=== PATIENT | female | born 1950 | race Hispanic/Latino ===

== ENCOUNTER 2017-08-12 09:17 | Day surgery (SDC) | payer BC, MEDICARE ==
[~2017-08-12] VITALS: Ht 149.9 cm; Wt 71.7 kg
[~2017-08-12 09:17] MED LIST: ALBUHFA IH; CARV6.25 PO; DIPH25 PO; ENAL5TAB PO; GABA-529 PO; METF500T6 PO; MONT10TA24 PO; OMEP20CA10 PO; SIMV20TA6 PO; SODIUM CHLORIDE 0.9% 1000ML 1,000 ML IV ONE
[2017-08-12 09:23] VITALS: BP 198/88
[2017-08-12] MEDS ORDERED: RANI-257 PO (10:00)
[2017-08-12] MEDS ORDERED: PROPOFOL 10 MG/ML 20ML VIAL IV ONE ×3 (10:07→10:34)
[2017-08-12 10:40] VITALS: BP 118/70
[2017-08-12] MEDS ORDERED: IPRATROPIUM/ALBUTEROL SULFATE 3 ML SOLUTION IH ONE (10:49)
[2017-09-17] MEDS ORDERED: OMEP20CA10 PO (17:03)
== END 2017-08-12 11:20 | disposition home or self-care (01) ==
LOC: DAH 09:17
PROVIDERS: ATTEND Internal Medicine Gastroenterology
DX: Z09 Encounter for follow-up examination after completed treatment for conditions other than malignant neoplasm (principal); Z86.010 Personal history of colon polyps; Z68.31 Body mass index [BMI] 31.0-31.9, adult; K21.9 Gastro-esophageal reflux disease without esophagitis; E11.9 Type 2 diabetes mellitus without complications; I10 Essential (primary) hypertension; E78.5 Hyperlipidemia, unspecified; J45.909 Unspecified asthma, uncomplicated; Z90.49 Acquired absence of other specified parts of digestive tract; Z90.710 Acquired absence of both cervix and uterus; Z79.899 Other long term (current) drug therapy; Z79.84 Long term (current) use of oral hypoglycemic drugs; K57.30 Diverticulosis of large intestine without perforation or abscess without bleeding
CPT/HCPCS: 43235; 45378; 82948 ×2; 93005; 94640; A4606; J2704 ×3; J7030

== ENCOUNTER 2017-08-13 23:31 | Inpatient (IN) | payer MEDICARE ==
[~2017-08-13] VITALS: Ht 149.9 cm; Wt 73.5 kg
[~2017-08-13 23:31] MED LIST changes: -OMEP20CA10 PO; +RANI-257 PO; -SODIUM CHLORIDE 0.9% 1000ML 1,000 ML IV ONE
[2017-08-14] VITALS (7 sets, daily range): BP systolic 122–181; BP diastolic 65–88
[2017-08-14] MEDS ORDERED: SODIUM CHLORIDE 0.9% 1000ML 1,000 ML IV ONE ×2 (00:06→04:27)
[2017-08-14] MEDS ORDERED: ONDANSETRON HCL MDV 20ML 2 MG/ML VIAL ONE (00:06)
[2017-08-14] MEDS ORDERED: MORPHINE SULFATE 2 MG/ML 1ML SYG ONE (00:07)
[2017-08-14 00:09] LABS: BILIRUBIN,URINE Negative (NEGATIVE); COLOR,URINE Yellow (YELLOW); GLUCOSE, URINE (UA) Negative (NEGATIVE); KETONES,URINE Negative (NEGATIVE); LEUKOCYTE ESTERASE ,URINE Negative (NEGATIVE); NITRATE,URINE Negative (NEGATIVE); OCCULT BLOOD,URINE Moderate (NEGATIVE); PH,URINE 6.5 (5.0-8.0); PROTEIN,URINE Negative (NEGATIVE); UROBILINOGEN,URINE 0.2 mg/dL (0.2-1.0)
[2017-08-14 00:12] LABS: BASOPHILS % (AUTO) 17.7 % (0.0-5.0); EOSINOPHILS % (AUTO) 1.6 % (0.0-8.0); HEMATOCRIT 44.1 % (36-48); LYMPHOCYTES % (AUTO) 11.5 % (21.0-51.0); MEAN CORPUSCULAR HEMOGLOBIN 28.5 pg (27.0-33.0); MEAN CORPUSCULAR HGB CONC 33.6 g/dL (32.0-36.0); MEAN CORPUSCULAR VOLUME 84.6 fL (79-99); MONOCYTES % (AUTO) 6.8 % (3.0-13.0); NEUTROPHILS % (AUTO) 62.4 % (40.0-77.0); PLATELET COUNT (AUTO) 291 K/uL (130-400); RED BLOOD CELL COUNT(AUTO) 5.21 MIL/uL (4.00-5.50); RED CELL DISTRIBUTION WIDTH 14.7 % (11.0-15.5); WHITE BLOOD COUNT (AUTO) 11.3 K/uL (4.8-10.8)
[2017-08-14 00:17] LABS: APPEARANCE,URINE 9 (CLEAR)
[2017-08-14 00:25] LABS: CREATININE 1.3 mg/dL (0.5-1.5); PARTIAL THROMBOPLASTIN TIME 24.7 SEC (26.3-35.5); POTASSIUM 3.9 mmol/L (3.5-5.1); PROTHROMBIN TIME 10.5 SEC (9.6-11.6)
[2017-08-14 00:29] LABS: BILIRUBIN,TOTAL 0.3 mg/dL (0.2-1.0); TOTAL PROTEIN, SERUM 7.8 g/dL (6.0-8.3)
[2017-08-14] MEDS ORDERED: MORPHINE SULFATE 4 MG/1ML SYG ONE (00:31)
[2017-08-14 00:48] LABS: BACTERIA,URINE Rare /HPF (None Seen); WBC,URINE 0-1 /HPF (0-1)
[2017-08-14 00:49] LABS: MUCUS,URINE Moderate LPF (None Seen); SQUAMOUS EPITHELIAL CELL,UR Moderate /HPF (0-2)
[2017-08-14] MEDS ORDERED: HYDROMORPHONE 1 MG/1 ML AMP ONE (01:07)
[2017-08-14] MEDS ORDERED: KETOROLAC TROMETHAMINE 30MG/ML ONE (01:50)
[2017-08-14] MEDS ORDERED: CEFTRIAXONE SODIUM 1 GM ONE (04:26)
[2017-08-14 06:27] LABS: MEAN CORPUSCULAR HEMOGLOBIN 28.4 pg (27.0-33.0); MEAN CORPUSCULAR HGB CONC 33.3 g/dL (32.0-36.0); MEAN CORPUSCULAR VOLUME 85.2 fL (79-99); PLATELET COUNT (AUTO) 271 K/uL (130-400); RED BLOOD CELL COUNT(AUTO) 4.58 MIL/uL (4.00-5.50); RED CELL DISTRIBUTION WIDTH 14.4 % (11.0-15.5); WHITE BLOOD COUNT (AUTO) 12.6 K/uL (4.8-10.8)
[2017-08-14 06:36] LABS: CREATININE 1.2 mg/dL (0.5-1.5); POTASSIUM 4.8 mmol/L (3.5-5.1)
[2017-08-14] MEDS ORDERED: MORPHINE SULFATE 2 MG/ML 1ML SYG IVP PRN (07:00)
[2017-08-14] MEDS: TAMSULOSIN HCL 0.4 MG CAP.ER.24H PO SCH (15:32)
[2017-08-15] VITALS (20 sets, daily range): BP systolic 120–182; BP diastolic 50–91
[2017-08-15] MEDS ORDERED: SODIUM CHLORIDE 0.9% 1000ML 1,000 ML IV ONE ×3 (03:13→20:15)
[2017-08-15 03:53] LABS: HEMATOCRIT 39.4 % (36-48); MEAN CORPUSCULAR HEMOGLOBIN 29.1 pg (27.0-33.0); MEAN CORPUSCULAR HGB CONC 34.3 g/dL (32.0-36.0); NUCLEATED RED BLOOD CELLS 0.2 % (0.0-0.19); PLATELET COUNT (AUTO) 263 K/uL (130-400); RED BLOOD CELL COUNT(AUTO) 4.63 MIL/uL (4.00-5.50); RED CELL DISTRIBUTION WIDTH 14.6 % (11.0-15.5); WHITE BLOOD COUNT (AUTO) 7.9 K/uL (4.8-10.8)
[2017-08-15 03:55] LABS: CREATININE 0.7 mg/dL (0.5-1.5); POTASSIUM 3.6 mmol/L (3.5-5.1)
[2017-08-15] MEDS: CEFTRIAXONE SODIUM 1 GM IVP SCH (08:50)
[2017-08-15] MEDS: TAMSULOSIN HCL 0.4 MG CAP.ER.24H PO SCH (09:00)
[2017-08-15] MEDS ORDERED: MIDAZOLAM HCL 1 MG/ML 2ML VIAL ONE (13:00)
[2017-08-15] MEDS ORDERED: FENTANYL CITRATE PF 50 MCG/1 ML 2ML VIAL ONE ×2 (13:00→14:04)
[2017-08-15] MEDS ORDERED: ISOVUE-370 50ML VIAL IV ONE (13:00)
[2017-08-15] MEDS ORDERED: PROPOFOL 10 MG/ML 20ML VIAL IV ONE (13:00)
[2017-08-15] MEDS ORDERED: SUB TO ALBUTEROL 2.5MG/3ML NEBULES PER P&T IH ONE ×2 (13:02→13:39)
[2017-08-15] MEDS ORDERED: METOCLOPRAMIDE 10 MG/2 ML VIAL ONE (13:31)
[2017-08-15] MEDS ORDERED: ONDANSETRON HCL MDV 20ML 2 MG/ML VIAL ONE ×2 (13:34→13:39)
[2017-08-15] MEDS ORDERED: PHENYLEPHRINE HCL 10 MG/ML 1ML VIAL IV ONE (13:39)
[2017-08-15] MEDS ORDERED: GLYCOPYRROLATE 0.2 MG/ML 5 ML VIAL ONE (13:53)
[2017-08-15] MEDS ORDERED: NEOSTIGMINE METHYLSULFATE 1MG/ML IV ONE (13:54)
[2017-08-15] MEDS ORDERED: ACETAMINOPHEN-CODEINE 300/30MG TAB PO PRN ×2 (15:45)
[2017-08-15] MEDS ORDERED: LACTATED RINGERS 1000ML 1,000 ML IV SCH (15:45)
[2017-08-15] MEDS ORDERED: ENALAPRIL MALEATE 5 MG TAB PO SCH (17:00)
[2017-08-15] MEDS: ALBUTEROL SULFATE 0.083% 2.5 MG/3 ML INH IH SCH ×2 (19:05→23:23)
[2017-08-15] MEDS ORDERED: MONTELUKAST SODIUM 10 MG TAB PO SCH (21:00)
[2017-08-15] MEDS ORDERED: ATORVASTATIN CALCIUM 10 MG TABLET PO SCH (21:00)
[2017-08-15] MEDS ORDERED: DIPHENHYDRAMINE HCL 25 MG CAPSULE PO SCH (21:00)
[2017-08-15] MEDS: CARVEDILOL 6.25 MG TABLET PO SCH (21:32)
[2017-08-15] MEDS: PHENAZOPYRIDINE HCL 200 MG TABLET PO SCH (21:32)
[2017-08-16] VITALS: BP 124/71
[2017-08-16 04:00] VITALS: BP 108/59
[2017-08-16] MEDS: ALBUTEROL SULFATE 0.083% 2.5 MG/3 ML INH IH SCH (05:57)
[2017-08-16 08:00] VITALS: BP 127/73
[2017-08-16] MEDS ORDERED: METFORMIN HCL 500 MG TAB.SR.24H PO SCH (08:00)
[2017-08-16] MEDS: TAMSULOSIN HCL 0.4 MG CAP.ER.24H PO SCH (08:55)
[2017-08-16] MEDS: PHENAZOPYRIDINE HCL 200 MG TABLET PO SCH (08:55)
[2017-08-16 08:56] VITALS: BP 127/73
[2017-08-16] MEDS: CARVEDILOL 6.25 MG TABLET PO SCH (08:56)
[2017-08-16] MEDS ORDERED: GABAPENTIN 300 MG CAPSULE PO SCH (09:00)
[2017-08-16] MEDS: CEFTRIAXONE SODIUM 1 GM IVP SCH (09:00)
[2017-08-16] MEDS ORDERED: RANITIDINE HCL 15 MG/1 ML PO SCH (09:00)
[2017-08-16] MEDS ORDERED: CIPR-245 PO (09:44)
[2017-08-16] MEDS ORDERED: TYL3 PO (09:44)
[2017-09-17] MEDS ORDERED: OMEP20CA10 PO (17:03)
== END 2017-08-16 11:50 | disposition home or self-care (01) | DRG 670 ==
LOC: EDH 23:31 → OBSVTOIN 08-14 02:25 → 3AH 08-14 02:25
PROVIDERS: ADMIT Internal Medicine; ATTEND Internal Medicine
PROC: 0T768DZ Dilation of Right Ureter with Intraluminal Device, Via Natural or Artificial Opening Endoscopic (ICD-10-PCS; principal; 2017-08-15 13:10)
PROC: 0TC68ZZ Extirpation of Matter from Right Ureter, Via Natural or Artificial Opening Endoscopic (ICD-10-PCS; 2017-08-15 13:10)
DX: N13.6 Pyonephrosis (principal); E11.9 Type 2 diabetes mellitus without complications; E78.5 Hyperlipidemia, unspecified; I10 Essential (primary) hypertension; J45.909 Unspecified asthma, uncomplicated; K21.9 Gastro-esophageal reflux disease without esophagitis; M81.0 Age-related osteoporosis without current pathological fracture; N35.9 Urethral stricture, unspecified; M19.90 Unspecified osteoarthritis, unspecified site; Z90.49 Acquired absence of other specified parts of digestive tract; Z90.710 Acquired absence of both cervix and uterus; Z88.2 Allergy status to sulfonamides; Z28.21 Immunization not carried out because of patient refusal
CPT/HCPCS: 36415; 74176; 74420; 80048; 80053; 81001; 82550; 82553; 82948; 84484; 85025; 85027; 85610; 85730; 93005; 94640; 94664; A4218; A4344; A4606; C1758; C1769; C2617; J0696; J1170; J1885; J2250; J2270; J2370; J2704; J2710; J2765; J3010; J3490; J7030; J7120; Q0163; Q9967

== ENCOUNTER 2017-09-19 06:25 | Day surgery (SDC) | payer MEDICARE ==
[2017-09-17 17:00] VITALS: BP 144/68
[2017-09-17 17:45] LABS: BASOPHILS % (AUTO) 1.1 % (0.0-5.0); EOSINOPHILS % (AUTO) 3.6 % (0.0-8.0); HEMATOCRIT 43.6 % (36-48); LYMPHOCYTES % (AUTO) 34.1 % (21.0-51.0); MEAN CORPUSCULAR HEMOGLOBIN 28.3 pg (27.0-33.0); MEAN CORPUSCULAR HGB CONC 33.5 g/dL (32.0-36.0); MEAN CORPUSCULAR VOLUME 84.6 fL (79-99); NEUTROPHILS % (AUTO) 53.2 % (40.0-77.0); NUCLEATED RED BLOOD CELLS 0.1 % (0.0-0.19); PLATELET COUNT (AUTO) 297 K/uL (130-400); RED BLOOD CELL COUNT(AUTO) 5.15 MIL/uL (4.00-5.50); WHITE BLOOD COUNT (AUTO) 8.8 K/uL (4.8-10.8)
[2017-09-17 17:54] LABS: CREATININE 0.9 mg/dL (0.5-1.5)
[2017-09-19] VITALS (17 sets, daily range): BP systolic 133–171; BP diastolic 62–94
[~2017-09-19] VITALS: Ht 149.9 cm; Wt 71.6 kg
[~2017-09-19 06:25] MED LIST changes: +CEFTRIAXONE SODIUM 1 GM IVP SCH; +OMEP20CA10 PO; -RANI-257 PO
[2017-09-19] MEDS ORDERED: SODIUM CHLORIDE 0.9% 1000ML 1,000 ML IV ONE (07:07)
[2017-09-19] MEDS ORDERED: MIDAZOLAM HCL 1 MG/ML 2ML VIAL ONE (07:29)
[2017-09-19] MEDS ORDERED: NEOSTIGMINE 5MG/5ML SYR IV ONE (07:29)
[2017-09-19] MEDS ORDERED: DEXAMETHASONE SOD PHOSPHATE 10MG/ML 1ML VIAL ONE (07:29)
[2017-09-19] MEDS ORDERED: LIDOCAINE PF 2% 5ML ABBOJECT ONE (07:29)
[2017-09-19] MEDS ORDERED: ONDANSETRON HCL 4 MG/2 ML VIAL ONE (07:29)
[2017-09-19] MEDS ORDERED: GLYCOPYRROLATE 0.2 MG/ML 5 ML VIAL ONE (07:29)
[2017-09-19] MEDS ORDERED: PROPOFOL 10 MG/ML 20ML VIAL IV ONE (07:30)
[2017-09-19] MEDS ORDERED: FENTANYL CITRATE PF 50 MCG/1 ML 2ML VIAL ONE ×2 (07:30→08:55)
[2017-09-19] MEDS ORDERED: ISOVUE-370 50ML VIAL IV ONE (07:38)
[2017-09-19] MEDS ORDERED: OPIUM/BELLADONNA ALKALOIDS 1 EACH SUPP.RECT RC ONE (09:16)
[2017-09-19] MEDS ORDERED: PHENAZOPYRIDINE HCL 200 MG TABLET ONE (10:02)
== END 2017-09-19 10:57 | disposition home or self-care (01) ==
LOC: DAH 06:25
PROVIDERS: ATTEND Urology
DX: N13.2 Hydronephrosis with renal and ureteral calculous obstruction (principal); N13.1 Hydronephrosis with ureteral stricture, not elsewhere classified; I10 Essential (primary) hypertension; E11.9 Type 2 diabetes mellitus without complications; E78.5 Hyperlipidemia, unspecified; K21.9 Gastro-esophageal reflux disease without esophagitis; J45.909 Unspecified asthma, uncomplicated; M81.0 Age-related osteoporosis without current pathological fracture; Z79.899 Other long term (current) drug therapy; Z79.84 Long term (current) use of oral hypoglycemic drugs; Z88.2 Allergy status to sulfonamides; I25.2 Old myocardial infarction; J18.9 Pneumonia, unspecified organism; Z87.891 Personal history of nicotine dependence; Z98.890 Other specified postprocedural states
CPT/HCPCS: 36415; 52356; 76000; 80048; 82948 ×2; 85025; 93005; A4218; A4354; A4358; A4510; A4600; A6204; C1758; C1769; C2617; J0696; J1100; J2001; J2250; J2405; J2704; J2710; J3010 ×2; J3490; J7030 ×2; Q9967

== ENCOUNTER 2021-02-12 12:15 | Day surgery (SDC) | payer MEDICARE ==
[2021-02-09 11:48] LABS: BASOPHILS % (AUTO) 1.1 % (0.0-5.0); EOSINOPHILS % (AUTO) 3.9 % (0.0-8.0); HEMATOCRIT 42.3 % (36-48); MEAN CORPUSCULAR HEMOGLOBIN 26.9 pg (27.0-33.0); MEAN CORPUSCULAR HGB CONC 31.7 g/dL (32.0-36.0); MEAN CORPUSCULAR VOLUME 84.9 fL (79-99); MONOCYTES % (AUTO) 10.3 % (3.0-13.0); NEUTROPHILS % (AUTO) 47.6 % (40.0-77.0); PLATELET COUNT (AUTO) 286 K/uL (130-400); RED BLOOD CELL COUNT(AUTO) 4.98 MIL/uL (4.00-5.50); RED CELL DISTRIBUTION WIDTH 14.3 % (11.0-15.5); WHITE BLOOD COUNT (AUTO) 7.2 K/uL (4.8-10.8)
[2021-02-09 12:11] LABS: CREATININE 0.9 mg/dL (0.5-1.5); POTASSIUM 4.5 mmol/L (3.5-5.1)
[~2021-02-12] VITALS: Ht 152.4 cm; Wt 71.9 kg
[2021-02-12] VITALS (17 sets, daily range): BP systolic 143–182; BP diastolic 70–103
[~2021-02-12 12:15] MED LIST changes: -ALBUHFA IH; +CEFTRIAXONE 1G VIAL IVP ONE; -CEFTRIAXONE SODIUM 1 GM IVP SCH; -DIPH25 PO; -ENAL5TAB PO; +FLUT1BLS9 IH; -GABA-529 PO; +LOSA100T58 PO; +METF-444 PO; -METF500T6 PO; -MONT10TA24 PO; +MONT10TA32 PO; -OMEP20CA10 PO; +OMEP20CA12 PO; +SIMV-43 PO; -SIMV20TA6 PO; +TRAZ-185 PO
[2021-02-12] MEDS ORDERED: 0.9%NACL 1000ML 1,000 ML IV ONE (12:19)
[2021-02-12] MEDS ORDERED: CEFTRIAXONE 1G VIAL ONE (12:19)
[2021-02-12] MEDS ORDERED: IOHEXOL-350 50ML VIAL IV ONE (12:26)
[2021-02-12] MEDS ORDERED: LIDOCAINE PF 100MG/5ML (2%) SYRINGE 5ML ONE (13:40)
[2021-02-12] MEDS ORDERED: PROPOFOL 10 MG/ML 20ML VIAL IV ONE (13:41)
[2021-02-12] MEDS ORDERED: ONDANSETRON 4MG INJ ONE (13:41)
[2021-02-12] MEDS ORDERED: ROCURONIUM 10MG/1ML SYR 10 MG/ML ML ONE (13:41)
[2021-02-12] MEDS ORDERED: MIDAZOLAM HCL 1 MG/ML 2ML VIAL ONE (13:41)
[2021-02-12] MEDS ORDERED: FENTANYL CITRATE PF 50 MCG/1 ML 2ML VIAL ONE (13:41)
[2021-02-12] MEDS ORDERED: GLYCOPYRROLATE 1 MG/5 ML SYRINGE ONE (14:37)
[2021-02-12] MEDS ORDERED: NEOSTIGMINE 5MG/5ML SYR IV ONE (14:37)
[2021-02-12] MEDS ORDERED: PHENAZOPYRIDINE HCL 200 MG TABLET ONE (16:02)
== END 2021-02-12 16:30 | disposition home or self-care (01) ==
LOC: DAH 12:15
PROVIDERS: ATTEND Urology
DX: N13.2 Hydronephrosis with renal and ureteral calculous obstruction (principal); Z20.822 Contact with and (suspected) exposure to COVID-19; N13.1 Hydronephrosis with ureteral stricture, not elsewhere classified; J44.9 Chronic obstructive pulmonary disease, unspecified; I10 Essential (primary) hypertension; E11.9 Type 2 diabetes mellitus without complications; M81.0 Age-related osteoporosis without current pathological fracture; K21.9 Gastro-esophageal reflux disease without esophagitis; Z88.1 Allergy status to other antibiotic agents; Z88.8 Allergy status to other drugs, medicaments and biological substances; Z79.84 Long term (current) use of oral hypoglycemic drugs
CPT/HCPCS: 36415; 52356; 74018; 80048; 82360; 82948 ×3; 85025; 87635; 93005; A4215; A4221; A4222; A4223; A4344; A4358; A4600; A4663; C1758 ×2; C2617; C9803; J0696; J2001; J2250; J2405; J2704; J2710; J3010; J3490; J7030; Q9967

== ENCOUNTER 2021-05-02 08:07 | Day surgery (SDC) | payer MEDICARE ==
[2021-05-01 16:33] LABS: BASOPHILS % (AUTO) 1.2 % (0.0-5.0); EOSINOPHILS % (AUTO) 2.4 % (0.0-8.0); HEMATOCRIT 43.5 % (36-48); LYMPHOCYTES % (AUTO) 36.5 % (21.0-51.0); MEAN CORPUSCULAR HEMOGLOBIN 26.8 pg (27.0-33.0); MEAN CORPUSCULAR HGB CONC 31.7 g/dL (32.0-36.0); MEAN CORPUSCULAR VOLUME 84.6 fL (79-99); MONOCYTES % (AUTO) 9.8 % (3.0-13.0); PLATELET COUNT (AUTO) 296 K/uL (130-400); RED BLOOD CELL COUNT(AUTO) 5.14 MIL/uL (4.00-5.50); WHITE BLOOD COUNT (AUTO) 7.4 K/uL (4.8-10.8)
[2021-05-01 16:44] LABS: CREATININE 1.1 mg/dL (0.5-1.5); POTASSIUM 4.6 mmol/L (3.5-5.1)
[2021-05-01 16:48] VITALS: BP 182/83
[~2021-05-02] VITALS: Ht 149.9 cm; Wt 72.1 kg
[2021-05-02] VITALS (14 sets, daily range): BP systolic 103–188; BP diastolic 57–98
[~2021-05-02 08:07] MED LIST changes: -CEFTRIAXONE 1G VIAL IVP ONE; +KETO10TA2 PO; +MONT-39 PO; -MONT10TA32 PO
[2021-05-02] MEDS ORDERED: 0.9%NACL 1000ML 1,000 ML IV ONE (08:47)
[2021-05-02] MEDS ORDERED: CEFTRIAXONE 1G VIAL ONE (08:47)
[2021-05-02] MEDS ORDERED: IOHEXOL-350 50ML VIAL IV ONE (09:09)
[2021-05-02] MEDS ORDERED: MIDAZOLAM HCL 1 MG/ML 2ML VIAL ONE (09:27)
[2021-05-02] MEDS ORDERED: LIDOCAINE PF 100MG/5ML (2%) SYRINGE 5ML ONE (09:27)
[2021-05-02] MEDS ORDERED: PROPOFOL 10 MG/ML 20ML VIAL IV ONE (09:27)
[2021-05-02] MEDS ORDERED: FENTANYL CITRATE PF 50 MCG/1 ML 2ML VIAL ONE (09:42)
[2021-05-02] MEDS ORDERED: 0.9%NACL 10ML VIAL ONE (09:46)
[2021-05-02] MEDS ORDERED: PHENYLEPHRINE HCL 10 MG/ML 1ML VIAL IV ONE (09:46)
[2021-05-02] MEDS ORDERED: ONDANSETRON 4MG INJ ONE (10:02)
[2021-05-02] MEDS ORDERED: PHENAZOPYRIDINE HCL 200 MG TABLET ONE (11:20)
== END 2021-05-02 11:45 | disposition home or self-care (01) ==
LOC: DAH 08:07
PROVIDERS: ATTEND Urology
DX: N13.2 Hydronephrosis with renal and ureteral calculous obstruction (principal); I10 Essential (primary) hypertension; E11.9 Type 2 diabetes mellitus without complications; E78.5 Hyperlipidemia, unspecified; J45.909 Unspecified asthma, uncomplicated; K21.9 Gastro-esophageal reflux disease without esophagitis; M81.0 Age-related osteoporosis without current pathological fracture; Z88.8 Allergy status to other drugs, medicaments and biological substances; Z79.84 Long term (current) use of oral hypoglycemic drugs; Z79.899 Other long term (current) drug therapy
CPT/HCPCS: 36415; 52332; 74420; 80048; 82948; 85025; 87635; 93005; A4215; A4221; A4222; A4223; A4344; A4358; A4600; A4663; A5113; A6260; C1758 ×2; C1769; C2617; C9803; J0696; J2001; J2250; J2370; J2405; J2704; J3010; J7030; Q9967

== ENCOUNTER → 2021-09-20 | Outpatient (CLI) | payer MEDICARE ==
[~2021-09-20] MED LIST changes: -CARV6.25 PO; -KETO10TA2 PO; -LOSA100T58 PO; -SIMV-43 PO
== END | disposition home or self-care (01) ==
LOC: RAH 11:14
PROVIDERS: ATTEND Urology
DX: N20.0 Calculus of kidney (principal); N28.89 Other specified disorders of kidney and ureter
CPT/HCPCS: 76770

== ENCOUNTER 2021-11-30 22:37 | Observation (INO) | payer MEDICARE ==
[~2021-11-30] VITALS: Ht 152.4 cm; Wt 68.3 kg
[2021-11-30] MEDS ORDERED: KETOROLAC 15MG/ML VIAL (15MG/ML) IV ONE (23:00)
[2021-11-30 23:08] LABS: BASOPHILS % (AUTO) 1.1 % (0.0-5.0); EOSINOPHILS % (AUTO) 4.5 % (0.0-8.0); HEMATOCRIT 48.3 % (36-48); LYMPHOCYTES % (AUTO) 45.6 % (21.0-51.0); MEAN CORPUSCULAR HEMOGLOBIN 26.6 pg (27.0-33.0); MEAN CORPUSCULAR HGB CONC 32.1 g/dL (32.0-36.0); MONOCYTES % (AUTO) 9.9 % (3.0-13.0); NEUTROPHILS % (AUTO) 38.7 % (40.0-77.0); PLATELET COUNT (AUTO) 259 K/uL (130-400); RED BLOOD CELL COUNT(AUTO) 5.82 MIL/uL (4.00-5.50); RED CELL DISTRIBUTION WIDTH 14.7 % (11.0-15.5)
[2021-11-30 23:11] LABS: APPEARANCE,URINE CLEAR (CLEAR); BILIRUBIN,URINE NEGATIVE (NEGATIVE); COLOR,URINE YELLOW (YELLOW); GLUCOSE, URINE (UA) NEGATIVE (NEGATIVE); KETONES,URINE NEGATIVE (NEGATIVE); LEUKOCYTE ESTERASE ,URINE NEGATIVE (NEGATIVE); NITRATE,URINE NEGATIVE (NEGATIVE); OCCULT BLOOD,URINE NEGATIVE (NEGATIVE); PROTEIN,URINE NEGATIVE (NEGATIVE); UROBILINOGEN,URINE 0.2 mg/dL (0.2-1.0)
[2021-11-30 23:23] LABS: ALBUMIN 3.9 g/dL (3.5-5.0); CREATININE 1.1 mg/dL (0.5-1.5); POTASSIUM 4.8 mmol/L (3.5-5.1)
[2021-12-01 05:10] VITALS: BP 152/68
[2021-12-01] MEDS ORDERED: MORPHINE 2 MG SYG IVP PRN (05:30)
[2021-12-01] MEDS ORDERED: LABETALOL 20MG SYG IV PRN (05:30)
[2021-12-01] MEDS ORDERED: TEMAZEPAM 15 MG CAPSULE PO PRN (05:30)
[2021-12-01] MEDS ORDERED: CLONIDINE HCL 0.1 MG TABLET PO PRN (05:30)
[2021-12-01] MEDS ORDERED: LACTULOSE 20 GM/30 ML UDCUP PO PRN (05:30)
[2021-12-01] MEDS ORDERED: DOCUSATE SODIUM 100 MG CAP PO PRN (05:30)
[2021-12-01] MEDS ORDERED: ONDANSETRON 4MG INJ IVP PRN (05:30)
[2021-12-01] MEDS ORDERED: HYDRALAZINE 20MG/ML VIAL IV PRN (05:30)
[2021-12-01] MEDS: LACTATED RINGERS 1000ML 1,000 ML IV SCH ×2 (05:38→16:50)
[2021-12-01] MEDS ORDERED: POTASSIUM CHLORIDE 20MEQ/100ML 100 ML IV PRN (06:00)
[2021-12-01] MEDS ORDERED: GLUCAGON 1MG KIT 1 MG ML IM PRN (06:00)
[2021-12-01] MEDS ORDERED: KCL 20 MEQ ERTAB PO PRN (06:00)
[2021-12-01] MEDS ORDERED: MAGNESIUM 2GM PREMIX 50ML 50 ML IV PRN (06:00)
[2021-12-01] MEDS ORDERED: DEXTROSE 50%-WATER 50 ML DISP.SYRIN IV PRN (06:00)
[2021-12-01] MEDS ORDERED: POTASSIUM CHLORIDE 10% ELIXIR 20 MEQ/15 ML UDCUP PO PRN (06:00)
[2021-12-01] MEDS: INSULIN HUMULIN R 100 UNIT/ML 3ML SQ SCH ×4 (07:14→20:48)
[2021-12-01 08:00] VITALS: BP 138/77
[2021-12-01] MEDS: PANTOPRAZOLE 40 MG/VIAL IVP SCH ×2 (10:45→20:54)
[2021-12-01 12:00] VITALS: BP 132/76
[2021-12-01] MEDS ORDERED: ESCI5TAB PO (12:01)
[2021-12-01] MEDS ORDERED: METO-391 PO (12:01)
[2021-12-01] MEDS ORDERED: AMLO2.5T4 PO (12:01)
[2021-12-01] MEDS ORDERED: ATOR40TA69 PO (12:01)
[2021-12-01 16:00] VITALS: BP 150/86
[2021-12-01 20:00] VITALS: BP 142/78
[2021-12-02] VITALS (27 sets, daily range): BP systolic 114–145; BP diastolic 51–78
[2021-12-02 04:15] LABS: BASOPHILS % (AUTO) 0.9 % (0.0-5.0); EOSINOPHILS % (AUTO) 4.8 % (0.0-8.0); HEMATOCRIT 38.2 % (36-48); LYMPHOCYTES % (AUTO) 42.7 % (21.0-51.0); MEAN CORPUSCULAR HEMOGLOBIN 26.8 pg (27.0-33.0); MEAN CORPUSCULAR HGB CONC 31.9 g/dL (32.0-36.0); MEAN CORPUSCULAR VOLUME 83.8 fL (79-99); MONOCYTES % (AUTO) 10.3 % (3.0-13.0); NEUTROPHILS % (AUTO) 41.1 % (40.0-77.0); PLATELET COUNT (AUTO) 222 K/uL (130-400); RED BLOOD CELL COUNT(AUTO) 4.56 MIL/uL (4.00-5.50); RED CELL DISTRIBUTION WIDTH 14.5 % (11.0-15.5); WHITE BLOOD COUNT (AUTO) 6.6 K/uL (4.8-10.8)
[2021-12-02 04:22] LABS: CREATININE 0.8 mg/dL (0.5-1.5); POTASSIUM 3.7 mmol/L (3.5-5.1)
[2021-12-02] MEDS: LACTATED RINGERS 1000ML 1,000 ML IV SCH ×2 (04:52→12:22)
[2021-12-02] MEDS: INSULIN HUMULIN R 100 UNIT/ML 3ML SQ SCH ×3 (06:29→16:30)
[2021-12-02] MEDS: PANTOPRAZOLE 40 MG/VIAL IVP SCH (07:34)
[2021-12-02] MEDS ORDERED: FENTANYL CITRATE PF 50 MCG/1 ML 2ML VIAL ONE (07:45)
[2021-12-02] MEDS ORDERED: PROPOFOL 10 MG/ML 20ML VIAL IV ONE (07:45)
[2021-12-02] MEDS ORDERED: MIDAZOLAM HCL 1 MG/ML 2ML VIAL ONE ×2 (07:45→11:33)
[2021-12-02] MEDS ORDERED: ROCURONIUM 10MG/1ML SYR 10 MG/ML ML ONE (07:45)
[2021-12-02] MEDS: CEFTRIAXONE 1G VIAL ONE ×2 (11:24→11:49)
[2021-12-02] MEDS ORDERED: IOHEXOL-350 50ML VIAL IV ONE (11:24)
[2021-12-02] MEDS ORDERED: ONDANSETRON 4MG INJ ONE (11:33)
[2021-12-02] MEDS ORDERED: NEOSTIGMINE 5MG/5ML SYR IV ONE (12:08)
[2021-12-02] MEDS ORDERED: GLYCOPYRROLATE 1 MG/5 ML SYRINGE ONE (12:08)
[2021-12-02] MEDS ORDERED: PHENAZOPYRIDINE HCL 200 MG TABLET PO SCH (21:00)
== END 2021-12-02 18:50 | disposition home or self-care (01) ==
LOC: EDH 22:37 → OBSVTOIN 12-01 00:52 → INTOOBSV 12-01 00:52 → EDHIP 12-01 00:52 → 4AH 12-01 03:58
PROVIDERS: ADMIT Internal Medicine Critical Care Medicine; ATTEND Internal Medicine Critical Care Medicine
DX: N13.2 Hydronephrosis with renal and ureteral calculous obstruction (principal); Z20.822 Contact with and (suspected) exposure to COVID-19; N13.1 Hydronephrosis with ureteral stricture, not elsewhere classified; N83.9 Noninflammatory disorder of ovary, fallopian tube and broad ligament, unspecified; E11.9 Type 2 diabetes mellitus without complications; I42.9 Cardiomyopathy, unspecified; J45.909 Unspecified asthma, uncomplicated; I10 Essential (primary) hypertension; K57.90 Diverticulosis of intestine, part unspecified, without perforation or abscess without bleeding; M47.815 Spondylosis without myelopathy or radiculopathy, thoracolumbar region; F32.A Depression, unspecified; I25.2 Old myocardial infarction; Z90.710 Acquired absence of both cervix and uterus; Z88.2 Allergy status to sulfonamides; Z87.442 Personal history of urinary calculi; Z85.820 Personal history of malignant melanoma of skin; Z79.899 Other long term (current) drug therapy
CPT/HCPCS: 96374; 99284; 80053; 85025 ×2; 81003; 36415 ×2; 74176; 96376 ×2; 96375; 82948 ×6; 52005; 80048; 87635; 74420; J1885; G0378 ×41; J7120 ×3; C9113 ×3; A4344; C1758; C1769; J3010; J3490; J2710; J0696; J2250 ×2; J2704; J2405; Q9967; A5113; A4358; C2617

== ENCOUNTER → 2022-05-16 | Outpatient (CLI) | payer MEDICARE ==
[~2022-05-16] MED LIST changes: +AMLO2.5T4 PO; +ATOR40TA69 PO; +ESCI5TAB PO; +FUROSEMIDE 40MG VIAL ONE; +METO-391 PO
== END | disposition home or self-care (01) ==
LOC: RAH 13:41
PROVIDERS: ATTEND Urology
DX: N13.5 Crossing vessel and stricture of ureter without hydronephrosis (principal); N13.30 Unspecified hydronephrosis
CPT/HCPCS: 78708; J1940; A9562

== ENCOUNTER → 2022-09-23 | Outpatient (CLI) | payer MEDICARE ==
[~2022-09-23] MED LIST changes: -FUROSEMIDE 40MG VIAL ONE
== END | disposition home or self-care (01) ==
LOC: RAH 12:34
PROVIDERS: ATTEND Urology
DX: N13.30 Unspecified hydronephrosis (principal)
CPT/HCPCS: 76770

== ENCOUNTER → 2023-05-27 | Outpatient (CLI) | payer MEDICARE ==
[~2023-05-27] MED LIST changes: +ALBU6.7H14 IH; -FLUT1BLS9 IH; +FLUT220HFA IH; -OMEP20CA12 PO; +OMEP40CA21 PO; +SACU1TAB PO; +TAMS-1 PO; -TRAZ-185 PO
== END | disposition home or self-care (01) ==
LOC: LAB 08:16
PROVIDERS: ATTEND Internal Medicine Cardiovascular Disease
DX: I50.22 Chronic systolic (congestive) heart failure (principal)
CPT/HCPCS: 36415; 80048

== ENCOUNTER → 2023-05-30 | Outpatient (CLI) | payer MEDICARE ==
[~2023-05-30] MED LIST changes: +FUROSEMIDE 40MG VIAL ONE
== END | disposition home or self-care (01) ==
LOC: RAH 13:58
PROVIDERS: ATTEND Urology
DX: N13.5 Crossing vessel and stricture of ureter without hydronephrosis (principal); N13.30 Unspecified hydronephrosis
CPT/HCPCS: 78708; J1940; A9562

== ENCOUNTER → 2023-12-30 | Outpatient (CLI) | payer MEDICARE ==
[~2023-12-30] MED LIST changes: -FUROSEMIDE 40MG VIAL ONE; +REGADENOSON 0.4 MG/5 ML PF SYG IVP ONE
== END | disposition home or self-care (01) ==
LOC: RAH 12:34
PROVIDERS: ATTEND Urology
DX: N13.5 Crossing vessel and stricture of ureter without hydronephrosis (principal)
CPT/HCPCS: 76770; J2785